=== PATIENT | female | born 1950 | race Caucasian/White ===

== ENCOUNTER 2018-08-12 00:10 | Emergency (ER) | payer MEDICARE, OTHER ==
[~2018-08-12] VITALS: Ht 157.5 cm; Wt 90.0 kg
[~2018-08-12 00:10] MED LIST: BUPR75TA12 PO; HYDR-3965 PO; LEVO100T PO; METO1TAB10 PO; ONDA4TAB12 PO; PANT-47 PO; SALS500T19 PO; SIMV40TA PO
[2018-08-12 00:13] VITALS: BP 163/86
[2018-08-12] MEDS ORDERED: HYDROcodone/acetaminophen 5mg/325mg tablet PO ONE (00:25)
[2018-08-12] MEDS ORDERED: ketorolac trometh inj. 60 MG/2 ML VIAL IM ONE (00:25)
[2018-08-12] MEDS ORDERED: CYCL-1 PO (00:28)
== END 2018-08-12 00:39 | disposition home or self-care (01) ==
LOC: ER 00:10
DX: S39.012A Strain of muscle, fascia and tendon of lower back, initial encounter (principal); K21.9 Gastro-esophageal reflux disease without esophagitis; F32.9 Major depressive disorder, single episode, unspecified; M19.90 Unspecified osteoarthritis, unspecified site; E03.9 Hypothyroidism, unspecified; F12.10 Cannabis abuse, uncomplicated; Z79.899 Other long term (current) drug therapy; X58.XXXA Exposure to other specified factors, initial encounter; Y93.89 Activity, other specified; Y92.89 Other specified places as the place of occurrence of the external cause; Y99.8 Other external cause status
CPT/HCPCS: 96372; 99283; J1885